=== PATIENT | male | born 1990 | race Caucasian/White ===

== ENCOUNTER 2018-09-09 17:16 | Emergency (ER) | payer OTHER ==
[~2018-09-09] VITALS: Ht 175.3 cm; Wt 127.0 kg
[2018-09-09 17:23] VITALS: BP_SYST 107
[2018-09-09] MEDS ORDERED: BACITRACIN 1 GM OINT TP ONE (17:45)
[2018-09-09 19:44] VITALS: BP_SYST 110
== END 2018-09-09 19:44 | disposition home or self-care (01) ==
LOC: SED 17:16
DX: S01.01XA Laceration without foreign body of scalp, initial encounter (principal); Z88.8 Allergy status to other drugs, medicaments and biological substances; W19.XXXA Unspecified fall, initial encounter; Y93.89 Activity, other specified; Y92.831 Amusement park as the place of occurrence of the external cause; Y99.8 Other external cause status
CPT/HCPCS: 99283